=== PATIENT | female | born 1955 | race Caucasian/White ===

== ENCOUNTER 2020-03-07 00:10 | Outpatient (CLI) | payer MEDICARE, OTHER, SELFPAY ==
[2020-03-07 18:39] LABS: SARS-CoV-2 RNA PCR Negative
== END 2020-03-07 00:11 | disposition home or self-care (01) ==
LOC: ANHCOVIDDT 00:11
PROVIDERS: PCP Internal Medicine; Visit Provider Plastic Surgery
DX: Z01.812 Encounter for preprocedural laboratory examination (principal); Z20.828 Contact with and (suspected) exposure to other viral communicable diseases
CPT/HCPCS: 87635; 93005; C9803; U0003

== ENCOUNTER 2020-03-07 08:45 | Outpatient (CLI) | payer MEDICARE, OTHER, SELFPAY ==
--- NOTE | 2020-03-07 08:48 | ECG_ITS ---
Measurements Intervals [place] Rate: 60 P: 63 WI: 171 QRS: 34 QRSD: 97 T: 55 QT: 412 QTc: 412 Interpretive Statements SINUS RHYTHM BASELINE ARTIFACT- V4 NORMAL ECG Electronically Signed On 03-07-2020 9:27:49 CDT by Rick Bobby D.O.
== END 2020-03-07 08:46 | disposition home or self-care (01) ==
PROVIDERS: PCP Internal Medicine; Visit Provider Plastic Surgery
DX: Z87.891 Personal history of nicotine dependence (principal)
CPT/HCPCS: 93005

== ENCOUNTER 2020-03-09 00:50 | Day surgery (SDC) | payer MEDICARE, OTHER, SELFPAY ==
[2020-03-03 15:25] VITALS: BMI 24.4
--- NOTE | 2020-03-08 20:42 | HP_ITS ---
DATE OF SERVICE: 03-08-20. DIAGNOSES: Basal cell carcinoma on the left side of the nose and subcutaneous mass, right dorsal index finger. HISTORY: The patient is 64. She has come for evaluation of the above items. The site on her nose was biopsied by punch technique on November 19, 2019 and is basal cell carcinoma. She has asked for surgical treatment of these and realized that she will have a scar in her face and on her finger. She is aware that infection may ensue. There may be numbness or tingling and maybe slow healing and wound healing problems. She would like to proceed. PAST MEDICAL HISTORY: Chronic ailments include the cancer condition from her breast, and she is followed by an senior peoplesoft developer for other reasons. MEDICATIONS: She takes letrozole, levothyroxine, calcium, Super B, fish oil, B12, multivitamins. ALLERGIES: SHE HAS NO KNOWN ALLERGIES TO MEDICATIONS. PAST SURGICAL HISTORY: She has had prior mastectomy in 2014, a in 1985, and a thoracotomy in November 1980. REVIEW OF SYSTEMS: Otherwise negative. FAMILY HISTORY: Noncontributory. SOCIAL HISTORY: She is a nonsmoker. She lives in [place]. Does not list employment. She is to her , patient of Dr. Braulio López. PHYSICAL EXAMINATION: GENERAL: She is a pleasant, cooperative lady, in no distress. She is 5 feet 8 inches and weighs 162 pounds. She has had a BMI of 24.6. HEENT: Reveals the biopsy site on the left side of her nose is healed well. There is no palpable adenopathy. CHEST: Clear to auscultation. HEART: Regular rate and rhythm by palpation. ABDOMEN: Soft, nontender. EXTREMITIES: Appear normal except for the mass over the dorsum of her right index finger. The lesion on her thumb is tender. It is somewhat mobile. It is possibly a ganglion cyst, causes her pain at times. ASSESSMENT: Subcutaneous mass of the right dorsal index finger and basal cell carcinoma of the left side of the nose. PLAN: Excision of the skin cancer with frozen section, possible local tissue transfer and excision of the subcutaneous mass, right dorsal index finger to be under MAC anesthetic. D I MT: Cailin WHITTINGTON
[2020-03-09] VITALS (7 sets, daily range): BP systolic 114–156; BP diastolic 73–94; PULSE 60–81; RESP 12–19; TEMP 36.3–36.6; O2SAT 98–100
--- NOTE | 2020-03-09 06:43 | WPDANESEPPF ---
Anes - Initial Pre Proc Eval Procedure: Operation Date: 03/09/20 07:30 Proposed Procedures p Excision Basal Cell Carcinoma Left Side Of Nose With Frozen Section And Local Tissue Transfer - Isael Kraus MD s Excision Subcutaneous Mass Right Dorsal Index Finger - Isael Kraus MD Date/Time: 03/09/20 06:43 Surgeon: Isael Kraus MD Pre Op Diagnosis: BCC Left Side Of Nose/ Subcu mass Rt Dorsal Index Patient Data Age: 64 Gender: F Height: 5 ft 9 in Weight: 75 kg Allergies Allergy/AdvReac Type Severity Reaction Status Date / Time poison rosa extract Allergy Unknown Verified 02/14/20 09:24 Home Medications Medication Instructions Recorded Confirmed Type calcium carbonat and lactate 200 2 tablet PO BID 09/22/19 03/03/20 History mg calcium-vitamin D3 250 unit tablet letrozole 2.5 mg tablet 2.5 mg PO DAILY 09/22/19 03/03/20 History magnesium 200 mg tablet 200 mg PO DAILY 09/22/19 03/03/20 History vitamin B complex 1 tablet PO DAILY 09/22/19 03/03/20 History levothyroxine 50 mcg tablet 50 mcg PO DAILY #90 tablet 11/16/19 03/03/20 Rx glucos sul [id number]-C-Mn 1 cap PO DAILY 03/03/20 03/03/20 History [Glucosamine Chondroitin] multivitamin 1 tablet PO DAILY 03/03/20 03/03/20 History omega 6-nvl-oxp-fish oil [Strunk-3] 1 cap PO BID 03/03/20 03/03/20 History Patient hx anesthesia problems: none Family hx anesthesia problems: none PMFSH Family History Family History Other Hypertension Social History Social History Smoking status: Never smoker Second hand tobacco smoke exposure: No Alcohol intake: current Anes - Eval Final PreProcedure Day of Procedure 03/09/20 06:43 Patient weight: normal Heart: regular rate and rhythm Lungs: clear to auscultation Airway: Mallampati scale class II Neurological: alert and oriented Last oral intake: >/= 8 hours ASA classification: III Emergent: no Anesthetic plan: proceed Anesthesia type and monitoring: general GIVS and standard monitoring Informed Consent: The patient's anesthetic plan and its attendant risks and benefits were discussed with the patient/family/POA. Questions were solicited and answers provided to the satisfaction of the patient/family/POA.
[2020-03-09] MEDS: SCOPOLAMINE 1.5 MG PATCH TRANSDERM (07:09)
[2020-03-09] MEDS: LACTATED RINGERS 1,000 ML 30 ML IV CONT (07:09)
--- NOTE | 2020-03-09 07:23 | WPDHPUPDATE1 ---
History and Physical Update Update Date/Time: 03/09/20 07:23 History and Physical has been reviewed, including an updated exam of the patient. There are NO changes in the patient's condition. Risks, benefits, and alternatives have been discussed and questions answered. Patient agrees to proceed with procedure.
--- NOTE | 2020-03-09 08:01 | PM.OP ---
Procedure Note - Brief Procedure Note - Brief Date of procedure: 03/09/20 Pre-op diagnosis: BCC Left Side Of Nose/ Subcu mass Rt Dorsal Index Post-op diagnosis: same Procedure performed: Excision of ganglion cyst right dorsal index finger. 2.4 cm excision of BCC or left side of nose with FS x2 and LTT 5.0 sq cm. Surgeon: Isael Kraus MD Supervisor Speech: Rashad Estimated blood loss (mL): 3 Tourniquet time (min): 5 Drains: No Packing: No Pathology: yes Complications: No immediate complications Condition: stable Disposition: PACU
[2020-03-09] MEDS: LIDO 1%/EPINEPHRINE 1:100,000 20 ML VIAL 30 ML INFILTRATE (08:05)
--- NOTE | 2020-03-09 09:07 | P.OP_ITS ---
Procedure Note - Detailed Date of procedure: 03/09/20 Pre-op diagnosis: BCC Left Side Of Nose/ Subcu mass Rt Dorsal Index Post-op diagnosis: other (Basal cell carcinoma left side of nose/ganglion cyst right dorsal index finger) Procedure performed: 2.4 cm excision of basal cell carcinoma of the left side of the nose with frozen section x2 and local tissue transfer 5 sq cm Excision of 1 cm ganglion cyst right dorsal index finger Description of procedure: The 2 sites were marked on the patient and she was in the holding britt. She was taken to the operating room where she is placed supine on the operating table. A time-out was held and confirmed. She was given general anesthesia with an LMA. Her Face and neck and right index finger were prepped with Betadine and draped as usual. The right index finger was infiltrated with 1% lidocaine with epinephrine as in intrathecal block. The site on the left side of the nose was carefully examined under magnification and marked for excision. This site was also infiltrated with 1% lidocaine with epinephrine. The basal cell carcinoma on the left side of her nose was excised into the subcutaneous tissue. The most superior aspect near the lower eyelid was marked with a suture for 12 o'clock. The specimen was sent for frozen section. The report from that indicated the 4-6 margin was positive for tumor. A 2nd ellipse of skin from the 3 to 7 o'clock margin was taken. This was approximately 3 mm in width. The new 4:00 margin was marked for orientation. The pathologist reported that all margins were free. This wound was closed by advancing cheek skin. The undermining exceeded 3 cm laterally. 1 cm incision was made along the inferior margin of the lower eyelid. 1 0 cm undermining was done as well along the margin of the lateral nose. Skin was undermined a cm or so along the side of the nose as well. Bleeding points were carefully electrocoagulated on a setting of 10. The cheek flap was advanced and approximated to the nose sidewall with 4-0 intradermal Vicryl. There was minimal distortion of the lower lid by this advancement. A dog ear was taken off along the caudal end of the closure line near the alar base. The skin was closed with interrupted and runn ing 6 0 nylon. At the right index finger a green tournicot was placed. A dorsal midline incision was made. The ganglion cyst was identified and removed. The skin was closed with running 5 0 nylon and a small bandage applied. Surgeon: Isael Kraus MD Estimated blood loss (mL): 3
--- NOTE | 2020-03-09 10:14 | SUR.PHASEII ---
1014 updated spouse on pt condition and a possible dc time
== END 2020-03-09 11:00 | disposition home or self-care (01) ==
PROVIDERS: PCP Internal Medicine; Visit Provider Plastic Surgery
PROC: (CPT 26160; principal; 2020-03-09 07:30)
PROC: (CPT 26160; 2020-03-09 07:30)
DX: C44.311 Basal cell carcinoma of skin of nose (principal); M67.441 Ganglion, right hand
CPT/HCPCS: 26160; 14060; 88305; 88331; A9270; J2704; J3010; J7120